=== PATIENT | female | born 1950 | race African-American/Black ===

== ENCOUNTER 2018-04-16 09:43 | Observation (INO) ==
[2018-04-16] MEDS ORDERED: DEXTROSE 50% 25 GM/50 ML SYRINGE IV PRN (16:21)
[2018-04-16] MEDS ORDERED: ONDANSETRON 4 MG/2 ML VIAL IV PRN (16:21)
[2018-04-16] MEDS ORDERED: GLUCAGON 1 MG VIAL IM PRN (16:21)
[2018-04-16] MEDS ORDERED: ACETAMINOPHEN 325 MG TABLET PO PRN (16:21)
[2018-04-16 17:07] LABS: Basophils % 0.4 % (0.0-0.8); Eosinophils # 0.2 10*3/uL (0.0-0.87); Eosinophils % 1.6 % (0.00-10.9); Hematocrit 37.1 VOL% (35.7-47.0); Hemoglobin 11.1 GM/DL (12.0-16.0); Immature Granulocytes % 0.3 %; Immature Granulocytes Absolute 0.03 #; Lymphocytes # 1.4 10*3/uL (1.4-4.0); Lymphocytes % 14.6 % (21.3-54.2); Mean Corpuscular HGB Conc 29.9 GM/DL (32-36); Mean Corpuscular Hemoglobin 22 PG (27-34); Mean Corpuscular Volume 72.5 FL (87-102); Monocytes # 0.7 10*3/uL (0.11-0.8); Monocytes % 7.1 % (1.7-12.7); Neutrophils # 7.3 10*3/uL (1.4-7.4); Platelet Count 243 T/CUMM (130-400); Red Blood Count 5.12 MC/CUMM (3.8-5.5); Red Cell Distribution Width 16.9 % (9.3-17.3); White Blood Count 9.6 T/CUMM (4-12)
[2018-04-16 17:29] LABS: Albumin 2.9 G/DL (3.4-5.0); Bilirubin,Total 0.9 MG/DL (0.2-1.0); Calcium 8.8 MG/DL (8.5-10.1); INR 1.3; PT Patient Result 14.1 SECS; Potassium 3.3 MMOL/L (3.5-5.1); Total Protein 7.7 G/DL (6.4-8.3)
[2018-04-16 17:52] LABS: Troponin I 0.018 NG/ML (0.00-0.045)
[2018-04-16] MEDS: FUROSEMIDE 20 MG/2 ML VIAL IV SCH (21:53)
[2018-04-16] MEDS: INSULIN LISPRO 100 UNIT/ML SUBCUT SCH (21:54)
[2018-04-16] MEDS: DOCUSATE SODIUM 100 MG CAPSULE PO SCH (21:54)
[2018-04-16] MEDS: ENOXAPARIN 40 MG/0.4 ML SYRINGE SUBCUT SCH ×2 (21:54→21:57)
[2018-04-17 00:45] LABS: Apearance,Urine CLEAR (Clear); Bacteria,Urine Occasional /HPF (Few); Bilirubin,Urine Negative (Negative); Blood, Urine Negative (Negative); Glucose,Urine (UA) Negative (Negative); Ketones,Urine Negative (Negative); Mucus,Urine Occasional /LPF (Occasional); Nitrite,Urine Negative (Negative); Protein,Urine Negative; RBC,Urine 1 /HPF (0-4); Squamous Epithelial Cell,Urine Occasional /HPF (0-10); Urine Color Straw (Yellow); Urine Specific Gravity 1.006 (1.001-1.035); Urine Urobilinogen < 2.0 EU/DL (0.2-1.0); WBC,Urine <1 /HPF (0-6)
[2018-04-17 03:14] LABS: Basophils % 0.4 % (0.0-0.8); Eosinophils # 0.2 10*3/uL (0.0-0.87); Eosinophils % 2.2 % (0.00-10.9); Hematocrit 33.3 VOL% (35.7-47.0); Immature Granulocytes % 0.3 %; Immature Granulocytes Absolute 0.03 #; Lymphocytes # 1.4 10*3/uL (1.4-4.0); Mean Corpuscular Hemoglobin 22 PG (27-34); Mean Corpuscular Volume 71.9 FL (87-102); Monocytes # 0.7 10*3/uL (0.11-0.8); Monocytes % 7.3 % (1.7-12.7); Neutrophils # 6.7 10*3/uL (1.4-7.4); Neutrophils % 74.8 % (38.7-73.9); Platelet Count 224 T/CUMM (130-400); Red Blood Count 4.63 MC/CUMM (3.8-5.5); Red Cell Distribution Width 16.6 % (9.3-17.3)
[2018-04-17 03:41] LABS: Calcium 8.1 MG/DL (8.5-10.1); Osmolality,Calculated 284.3 MOS/KG (273-304); Potassium 3.4 MMOL/L (3.5-5.1)
[2018-04-17 03:49] LABS: Platelet Estimate Normal; Polychromasia Few
[2018-04-17 09:19] LABS: Risk Ratio 2.94; VLDL CHOLESTEROL 15.8 MG/DL
[2018-04-17] MEDS ORDERED: RIVAROXABAN 20 MG TABLET PO SCH (09:30)
[2018-04-17] MEDS: BENAZEPRIL 10 MG TABLET PO SCH (10:20)
[2018-04-17] MEDS: hydroCHLOROthiazide 12.5 MG CAPSULE PO SCH (10:20)
[2018-04-17] MEDS: DOCUSATE SODIUM 100 MG CAPSULE PO SCH ×2 (10:23→21:06)
[2018-04-17] MEDS: ASPIRIN EC 81 MG TABLET PO SCH (10:23)
[2018-04-17] MEDS: VERAPAMIL SR 240 MG TABLET PO SCH (10:23)
[2018-04-17] MEDS: INSULIN LISPRO 100 UNIT/ML SUBCUT SCH ×4 (10:24→21:06)
[2018-04-17] MEDS: PANTOPRAZOLE 40 MG TABLET PO SCH (10:24)
[2018-04-17] MEDS: FUROSEMIDE 20 MG/2 ML VIAL IV SCH ×2 (10:25→18:11)
[2018-04-17] MEDS ORDERED: hydrALAZINE 20 MG/1 ML VIAL IV PRN (13:11)
[2018-04-18 05:52] LABS: Basophils % 0.5 % (0.0-0.8); Eosinophils # 0.2 10*3/uL (0.0-0.87); Eosinophils % 2.1 % (0.00-10.9); Hematocrit 36.5 VOL% (35.7-47.0); Hemoglobin 10.9 GM/DL (12.0-16.0); Immature Granulocytes % 0.4 %; Immature Granulocytes Absolute 0.03 #; Lymphocytes # 1.3 10*3/uL (1.4-4.0); Lymphocytes % 16.7 % (21.3-54.2); Mean Corpuscular HGB Conc 29.9 GM/DL (32-36); Mean Corpuscular Hemoglobin 21 PG (27-34); Mean Corpuscular Volume 71.4 FL (87-102); Monocytes # 0.6 10*3/uL (0.11-0.8); Monocytes % 7.3 % (1.7-12.7); Neutrophils # 5.8 10*3/uL (1.4-7.4); Platelet Count 252 T/CUMM (130-400); Red Blood Count 5.11 MC/CUMM (3.8-5.5); Red Cell Distribution Width 16.5 % (9.3-17.3); White Blood Count 7.9 T/CUMM (4-12)
[2018-04-18 06:10] LABS: Calcium 8.7 MG/DL (8.5-10.1); Osmolality,Calculated 272.1 MOS/KG (273-304); Potassium 3.3 MMOL/L (3.5-5.1)
[2018-04-18 06:18] LABS: Hypochromasia 1+
[2018-04-18 06:19] LABS: Anisocytosis 1+; Microcytosis 1+; Ovalocytes Slight; Platelet Estimate Normal
[2018-04-18] MEDS ORDERED: CARVEDILOL 6.25 MG TABLET PO SCH (09:00)
[2018-04-18] MEDS ORDERED: POTASSIUM CHLORIDE 20 MEQ TABLET PO SCH (09:00)
[2018-04-18] MEDS: ASPIRIN EC 81 MG TABLET PO SCH (09:12)
[2018-04-18] MEDS: VERAPAMIL SR 240 MG TABLET PO SCH (09:12)
[2018-04-18] MEDS: hydroCHLOROthiazide 12.5 MG CAPSULE PO SCH (09:12)
[2018-04-18] MEDS: BENAZEPRIL 10 MG TABLET PO SCH (09:13)
[2018-04-18] MEDS: PANTOPRAZOLE 40 MG TABLET PO SCH (09:13)
[2018-04-18] MEDS: DOCUSATE SODIUM 100 MG CAPSULE PO SCH (09:14)
[2018-04-18] MEDS: FUROSEMIDE 20 MG/2 ML VIAL IV SCH (09:15)
[2018-04-18] MEDS: INSULIN LISPRO 100 UNIT/ML SUBCUT SCH ×3 (09:15→12:01)
[2018-04-18 11:58] VITALS: BP 120/83
[2018-04-19] MEDS ORDERED: FUROSEMIDE 40 MG TABLET PO SCH (09:00)
== END 2018-04-18 14:40 | disposition home or self-care (01) ==
LOC: N.TELEN
PROVIDERS: ADMIT Family Medicine; ATTEND Family Medicine